=== PATIENT | male | born 1955 | race Two or more races ===

== ENCOUNTER 2017-07-22 07:10 | Outpatient (CLI) | payer OTHER ==
[~2017-07-22 07:10] MED LIST: AMBIEN10 MG PO; AMBIEN5 MG; AMBIEN5 MG PO; AMOX1TAB12 PO; CIALIS2.5 MG; CIALIS20 MG PO; LUNESTA2 MG PO; ZOCOR20 MG PO
== END 2017-07-22 07:12 | disposition home or self-care (01) ==
LOC: NUCLEAR 07:10
DX: I25.10 Atherosclerotic heart disease of native coronary artery without angina pectoris (principal)
CPT/HCPCS: A9500; 93017; 78452

== ENCOUNTER → 2018-02-16 | Outpatient (CLI) | payer OTHER | END | disposition home or self-care (01) | LOC: LAB 10:47 | DX: I11.9 Hypertensive heart disease without heart failure (principal); E78.2 Mixed hyperlipidemia ==

== ENCOUNTER 2018-02-19 09:08 | Outpatient (CLI) | payer OTHER | END 2018-02-19 11:43 | disposition home or self-care (01) | LOC: SONOGRAMA 09:08 | DX: E04.1 Nontoxic single thyroid nodule (principal) ==

== ENCOUNTER 2018-07-23 09:11 | Outpatient (CLI) | payer OTHER | END 2018-07-23 09:30 | disposition home or self-care (01) | LOC: LAB 09:11 | DX: E03.8 Other specified hypothyroidism (principal) ==

== ENCOUNTER 2018-09-09 11:12 | Outpatient (CLI) | payer OTHER | END 2018-09-09 15:31 | disposition home or self-care (01) | LOC: RAD 11:12 | DX: R07.89 Other chest pain (principal) ==

== ENCOUNTER → 2018-10-09 11:35 | Outpatient (CLI) | payer OTHER | END | disposition home or self-care (01) | LOC: LAB 11:35 | DX: E78.2 Mixed hyperlipidemia (principal); E11.9 Type 2 diabetes mellitus without complications; I11.9 Hypertensive heart disease without heart failure ==

== ENCOUNTER 2019-03-27 11:04 | Outpatient (CLI) | payer OTHER | END 2019-03-27 15:00 | disposition home or self-care (01) | LOC: LAB 11:04 | DX: E78.2 Mixed hyperlipidemia (principal) ==

== ENCOUNTER 2019-06-22 15:23 | Outpatient (CLI) | payer OTHER | END 2019-06-22 15:34 | disposition home or self-care (01) | LOC: LAB 15:23 | DX: E78.00 Pure hypercholesterolemia, unspecified (principal); I11.9 Hypertensive heart disease without heart failure; E03.8 Other specified hypothyroidism ==

== ENCOUNTER 2019-06-23 10:25 | Outpatient (CLI) | payer OTHER | END 2019-06-23 10:26 | disposition home or self-care (01) | LOC: TOM 10:25 | DX: E78.49 Other hyperlipidemia (principal); J44.9 Chronic obstructive pulmonary disease, unspecified; E04.8 Other specified nontoxic goiter ==

== ENCOUNTER 2019-10-25 09:39 | Outpatient (CLI) | payer OTHER | END 2019-10-25 09:55 | disposition home or self-care (01) | LOC: LAB 09:39 | PROVIDERS: ATTEND Internal Medicine Cardiovascular Disease | DX: E11.9 Type 2 diabetes mellitus without complications (principal) ==

== ENCOUNTER 2021-09-24 09:50 | Outpatient (CLI) | payer OTHER | END 2021-09-24 10:54 | disposition home or self-care (01) | LOC: RAD 09:50 | PROVIDERS: ATTEND Family Medicine Adult Medicine | DX: I87.2 Venous insufficiency (chronic) (peripheral) (principal); K30 Functional dyspepsia; E04.1 Nontoxic single thyroid nodule; R10.9 Unspecified abdominal pain ==

== ENCOUNTER 2023-04-08 13:36 | Outpatient (CLI) | payer OTHER | END 2023-04-08 13:50 | disposition home or self-care (01) | LOC: SONOGRAMA 13:36 | PROVIDERS: ATTEND Internal Medicine | DX: E03.9 Hypothyroidism, unspecified (principal) ==

== ENCOUNTER 2024-03-04 14:23 | Outpatient (CLI) | payer OTHER | END 2024-03-04 14:32 | disposition home or self-care (01) | LOC: TOM 14:23 | PROVIDERS: ATTEND General Practice | DX: Z87.891 Personal history of nicotine dependence (principal) ==